=== PATIENT | male | born 1970 | race Caucasian/White ===

== ENCOUNTER 2018-05-25 18:18 | Inpatient (IN) | payer MEDICAID ==
[~2018-05-25] VITALS: Ht 165.1 cm; Wt 64.0 kg
[~2018-05-25 18:18] MED LIST: BENZ2TAB10 PO; FLUP10TA2 PO; OLAN7.5T2 PO; OMEP10 PO; TRAZ150 PO
[2018-05-25] MEDS ORDERED: PROP10TA73 PO (18:39)
[2018-05-25] MEDS ORDERED: LORA1TAB3 PO (18:39)
[2018-05-25] MEDS ORDERED: DIPH50 PO (18:39)
[2018-05-25] MEDS ORDERED: FluPHENAZine HCL 5 MG TABLET PO ONE (19:00)
[2018-05-25 19:04] LABS: BASOPHILS % (AUTO) 0.6 % (0.0-2.0); EOSINOPHILS % (AUTO) 0.1 % (1.0-6.0); HEMATOCRIT 38.2 % (41-53); HEMOGLOBIN 13.5 g/dL (13.5-17.5); LYMPHOCYTES # (AUTO) 1.4 K/uL (1.0-4.8); LYMPHOCYTES % (AUTO) 19.8 % (22.0-44.0); MEAN CORPUSCULAR HEMOGLOBIN 31.9 pg (26.0-34.0); MEAN CORPUSCULAR HGB CONC 35.3 G/dL (31.0-37.0); MEAN CORPUSCULAR VOLUME 90 fL (80-100); MONOCYTES # (AUTO) 0.8 K/uL (0.1-1.0); MONOCYTES % (AUTO) 12.1 % (2.0-9.0); NEUTROPHILS # (AUTO) 4.7 K/uL (1.8-7.7); NEUTROPHILS % (AUTO) 67.4 % (40.0-70.0); PLATELET COUNT (AUTO) 201 K/uL (150-450); RED BLOOD CELL COUNT(AUTO) 4.23 MIL/uL (4.50-5.90); RED CELL DISTRIBUTION WIDTH 13.5 % (11.5-14.5)
[2018-05-25 19:13] LABS: ANION GAP 9 mmol/L (8-16); CALCIUM, TOTAL 7.6 mg/dL (8.8-10.5); CARBON DIOXIDE 23 mmol/L (22-29); CHLORIDE 94 mmol/L (98-107); CREATININE 0.79 mg/dL (0.60-1.30); GLOMERULAR FILTR. RATE CALC > 60 mL/min (>60); GLUCOSE,RANDOM 110 mg/dL (70-110); SODIUM SERUM 126 mmol/L (136-145); UREA NITROGEN, BLOOD 13 mg/dL (7-18)
[2018-05-25 19:18] LABS: ALANINE AMINOTRANSFERASE 45 U/L (12-78); ALBUMIN 3.6 g/dL (3.4-5.0); ALKALINE PHOSPHATASE 69 U/L (46-116); ASPARTATE AMINOTRANSFERASE 33 U/L (15-37); BILIRUBIN,TOTAL 0.4 mg/dL (0.1-1.0); TOTAL PROTEIN, SERUM 7.6 g/dL (6.4-8.2)
[2018-05-25 20:14] LABS: AMPHET/METH SCREEN,URINE NEGATIVE (NEGATIVE); BARBITURATE SCREEN, URINE NEGATIVE (NEGATIVE); BENZODIAZEPINES SCREEN,URINE NEGATIVE (NEGATIVE); CANNABINOID SCREEN,URINE NEGATIVE (NEGATIVE); COCAINE SCREEN,URINE NEGATIVE (NEGATIVE); METHADONE SCREEN, URINE NEGATIVE (NEGATIVE); OPIATE SCREEN,URINE NEGATIVE (NEGATIVE)
[2018-05-25 20:16] LABS: PHENCYCLIDINE SCREEN,URINE NEGATIVE (NEGATIVE)
[2018-05-25] MEDS ORDERED: POTASSIUM CHLORIDE 20 MEQ ER TABLET PO ONE (20:30)
[2018-05-25] MEDS ORDERED: ZOLPIDEM TARTRATE 10 MG TABLET PO PRN (20:45)
[2018-05-25] MEDS: LORazepam 2 MG TABLET PO PRN (21:10)
[2018-05-25] MEDS: OLANZapine 5 MG RAPDIS TABLET PO PRN (21:10)
[2018-05-25 21:42] LABS: APPEARANCE,URINE CLEAR (CLEAR); BILIRUBIN,URINE NEGATIVE (NEGATIVE); GLUCOSE, URINE (UA) NEGATIVE (NEGATIVE); KETONES,URINE NEGATIVE (NEGATIVE); LEUKOCYTE ESTERASE ,URINE NEGATIVE (NEGATIVE); NITRATE,URINE NEGATIVE (NEGATIVE); OCCULT BLOOD,URINE NEGATIVE (NEGATIVE); PH,URINE 5.5 (5.0-8.0); PROTEIN,URINE NEGATIVE (NEGATIVE); UROBILINOGEN,URINE 0.2 mg/dL (<=1.0)
[2018-05-26 00:05] VITALS: BP 128/81
[2018-05-26] MEDS: TraZODone HCL 100 MG TABLET PO SCH ×2 (00:14→20:01)
[2018-05-26] MEDS: OLANZapine 7.5 MG TABLET PO SCH ×2 (00:15→20:02)
[2018-05-26 08:08] VITALS: BP 117/71
[2018-05-26 08:46] LABS: HEMOGLOBIN A1C 5.3 % (4.5-6.2)
[2018-05-26 09:08] LABS: CHOL/HDL RATIO 2.6 (4.2-7.3); FREE T4 (FREE THYROXINE) 0.89 ng/dL (0.76-1.46); POTASSIUM 4.5 mmol/L (3.5-5.1); THYROID STIMULATING HORMONE 2.62 uIU/mL (0.36-3.74)
[2018-05-26] MEDS ORDERED: FLUP5 PO (11:40)
[2018-05-26] MEDS ORDERED: TRAZ-220 PO (11:40)
[2018-05-26] MEDS: SODIUM CHLORIDE 1 GM TABLET PO SCH ×2 (12:28→16:07)
[2018-05-26] MEDS ORDERED: TUBERCULIN, PURIFIED PROTEIN DERIVATIVE 5 TU/0.1 ML SYG ID ONE (13:00)
[2018-05-26] MEDS ORDERED: GuaiFENesin/D-METHORPHAN [SUGAR-FREE] 200-20MG/10 ML SYRUP UDCUP PO PRN (13:00)
[2018-05-26] MEDS ORDERED: PROMETHAZINE HCL 25 MG TABLET PO PRN (13:00)
[2018-05-26] MEDS ORDERED: MAGNESIUM HYDROXIDE SUSPENSION 30 ML UDCUP PO PRN (13:00)
[2018-05-26] MEDS ORDERED: HydrOXYzine PAMOATE 50 MG CAPSULE PO PRN (13:00)
[2018-05-26] MEDS ORDERED: ACETAMINOPHEN 325 MG TABLET PO PRN (13:00)
[2018-05-26] MEDS ORDERED: MAG HYDROX/AL HYDROX/SIMETH ES 30 ML SUSPENSION UDCUP PO PRN (13:00)
[2018-05-26] MEDS ORDERED: LOPERAMIDE HCL 2 MG CAPSULE PO PRN (13:00)
[2018-05-26 16:00] VITALS: BP 124/84
[2018-05-26] MEDS: THIAMINE HCL 100 MG TABLET PO SCH (16:07)
[2018-05-26] MEDS: LORazepam 2 MG TABLET PO PRN (16:07)
[2018-05-27 05:14] VITALS: BP 119/77
[2018-05-27 08:10] VITALS: BP 123/76
[2018-05-27] MEDS: FOLIC ACID 1 MG TABLET PO SCH (08:10)
[2018-05-27] MEDS: SODIUM CHLORIDE 1 GM TABLET PO SCH ×4 (08:10→20:06)
[2018-05-27] MEDS: MULTIVITAMINS WITH MINERALS, THERAPEUTIC TABLET PO SCH (08:10)
[2018-05-27] MEDS: THIAMINE HCL 100 MG TABLET PO SCH ×2 (08:10→16:47)
[2018-05-27 08:55] LABS: ALANINE AMINOTRANSFERASE 34 U/L (12-78); ALBUMIN 3.3 g/dL (3.4-5.0); ALKALINE PHOSPHATASE 64 U/L (46-116); ANION GAP 4 mmol/L (8-16); ASPARTATE AMINOTRANSFERASE 23 U/L (15-37); BILIRUBIN,TOTAL 0.3 mg/dL (0.1-1.0); CALCIUM, TOTAL 7.8 mg/dL (8.8-10.5); CARBON DIOXIDE 28 mmol/L (22-29); CHLORIDE 101 mmol/L (98-107); CREATININE 0.86 mg/dL (0.60-1.30); GLOMERULAR FILTR. RATE CALC > 60 mL/min (>60); GLUCOSE,RANDOM 127 mg/dL (70-110); POTASSIUM 3.8 mmol/L (3.5-5.1); SODIUM SERUM 133 mmol/L (136-145); TOTAL PROTEIN, SERUM 6.6 g/dL (6.4-8.2); UREA NITROGEN, BLOOD 9 mg/dL (7-18)
[2018-05-27 16:22] VITALS: BP 140/90
[2018-05-27] MEDS: OLANZapine 10 MG TABLET PO SCH (20:04)
[2018-05-27] MEDS: TraZODone HCL 100 MG TABLET PO SCH (20:04)
[2018-05-28 02:04] VITALS: BP 119/79
[2018-05-28 08:01] LABS: ANION GAP 6 mmol/L (8-16); CALCIUM, TOTAL 8.1 mg/dL (8.8-10.5); CARBON DIOXIDE 27 mmol/L (22-29); CHLORIDE 103 mmol/L (98-107); CREATININE 0.86 mg/dL (0.60-1.30); GLOMERULAR FILTR. RATE CALC > 60 mL/min (>60); GLUCOSE,RANDOM 128 mg/dL (70-110); POTASSIUM 3.9 mmol/L (3.5-5.1); SODIUM SERUM 136 mmol/L (136-145); UREA NITROGEN, BLOOD 10 mg/dL (7-18)
[2018-05-28 08:09] VITALS: BP 107/72
[2018-05-28] MEDS: FOLIC ACID 1 MG TABLET PO SCH (08:10)
[2018-05-28] MEDS: MULTIVITAMINS WITH MINERALS, THERAPEUTIC TABLET PO SCH (08:10)
[2018-05-28] MEDS: THIAMINE HCL 100 MG TABLET PO SCH ×2 (08:10→16:41)
[2018-05-28] MEDS: SODIUM CHLORIDE 1 GM TABLET PO SCH ×4 (08:10→21:09)
[2018-05-28] MEDS: LORazepam 2 MG TABLET PO PRN ×2 (10:04→16:41)
[2018-05-28] MEDS ORDERED: OLAN10TA20 PO (14:01)
[2018-05-28] MEDS ORDERED: TRAZ-220 PO (14:01)
[2018-05-28] MEDS ORDERED: OLAN10TA3 PO (14:20)
[2018-05-28 16:12] VITALS: BP 135/85
[2018-05-28] MEDS: TraZODone HCL 100 MG TABLET PO SCH (21:09)
[2018-05-28] MEDS: OLANZapine 10 MG TABLET PO SCH (21:09)
[2018-05-29 02:30] VITALS: BP 133/82
[2018-05-29 08:09] VITALS: BP 126/71
[2018-05-29] MEDS: LORazepam 2 MG TABLET PO PRN (08:28)
[2018-05-29] MEDS: SODIUM CHLORIDE 1 GM TABLET PO SCH ×2 (08:28→13:11)
[2018-05-29] MEDS: THIAMINE HCL 100 MG TABLET PO SCH (08:28)
[2018-05-29] MEDS: MULTIVITAMINS WITH MINERALS, THERAPEUTIC TABLET PO SCH (08:28)
[2018-05-29] MEDS: OLANZapine 5 MG RAPDIS TABLET PO PRN (08:28)
[2018-05-29] MEDS: FOLIC ACID 1 MG TABLET PO SCH (08:28)
== END 2018-05-29 13:20 | disposition home or self-care (01) | DRG 750 ==
LOC: EMS 18:18 → B2S 20:30 → B3A 20:31
PROVIDERS: ADMIT Psychiatry & Neurology Psychiatry; ATTEND Psychiatry & Neurology Psychiatry
DX: F20.0 Paranoid schizophrenia (principal); R45.851 Suicidal ideations; K21.9 Gastro-esophageal reflux disease without esophagitis; F17.210 Nicotine dependence, cigarettes, uncomplicated; J44.9 Chronic obstructive pulmonary disease, unspecified; E87.6 Hypokalemia; F32.9 Major depressive disorder, single episode, unspecified; Z79.899 Other long term (current) drug therapy; Z23 Encounter for immunization
CPT/HCPCS: 83036; 84132; 84153; 84436; 84439; 84443; 90686; G0480

== ENCOUNTER 2018-07-24 19:00 | Inpatient (IN) | payer MEDICAID ==
[~2018-07-24] VITALS: Ht 165.1 cm; Wt 66.2 kg
[~2018-07-24 19:00] MED LIST changes: -BENZ2TAB10 PO; -FLUP10TA2 PO; +OLAN10TA20 PO; +OLAN10TA3 PO; -OLAN7.5T2 PO; -OMEP10 PO; +TRAZ-220 PO; -TRAZ150 PO
[2018-07-24 19:47] LABS: BASOPHILS % (AUTO) 0.4 % (0.0-2.0); EOSINOPHILS % (AUTO) 0.1 % (1.0-6.0); HEMATOCRIT 43.4 % (41-53); HEMOGLOBIN 15.2 g/dL (13.5-17.5); LYMPHOCYTES # (AUTO) 1.4 K/uL (1.0-4.8); LYMPHOCYTES % (AUTO) 16.4 % (22.0-44.0); MEAN CORPUSCULAR HEMOGLOBIN 32.4 pg (26.0-34.0); MEAN CORPUSCULAR VOLUME 93 fL (80-100); MONOCYTES # (AUTO) 0.8 K/uL (0.1-1.0); MONOCYTES % (AUTO) 9.6 % (2.0-9.0); NEUTROPHILS # (AUTO) 6.2 K/uL (1.8-7.7); NEUTROPHILS % (AUTO) 73.5 % (40.0-70.0); PLATELET COUNT (AUTO) 219 K/uL (150-450); RED CELL DISTRIBUTION WIDTH 13.5 % (11.5-14.5)
[2018-07-24 19:57] LABS: ANION GAP 8 mmol/L (8-16); CALCIUM, TOTAL 8.6 mg/dL (8.8-10.5); CARBON DIOXIDE 27 mmol/L (22-29); CHLORIDE 104 mmol/L (98-107); CREATININE 0.91 mg/dL (0.60-1.30); GLOMERULAR FILTR. RATE CALC > 60 mL/min (>60); GLUCOSE,RANDOM 105 mg/dL (70-110); POTASSIUM 3.5 mmol/L (3.5-5.1); SODIUM SERUM 139 mmol/L (136-145); UREA NITROGEN, BLOOD 12 mg/dL (7-18)
[2018-07-24 20:00] LABS: AMPHET/METH SCREEN,URINE NEGATIVE (NEGATIVE); BARBITURATE SCREEN, URINE NEGATIVE (NEGATIVE); BENZODIAZEPINES SCREEN,URINE NEGATIVE (NEGATIVE); CANNABINOID SCREEN,URINE NEGATIVE (NEGATIVE); COCAINE SCREEN,URINE NEGATIVE (NEGATIVE); METHADONE SCREEN, URINE NEGATIVE (NEGATIVE); OPIATE SCREEN,URINE NEGATIVE (NEGATIVE)
[2018-07-24] MEDS ORDERED: OLANZapine 5 MG RAPDIS TABLET PO PRN (20:00)
[2018-07-24] MEDS ORDERED: ZOLPIDEM TARTRATE 10 MG TABLET PO PRN (20:00)
[2018-07-24 20:05] LABS: ALANINE AMINOTRANSFERASE 26 U/L (12-78); ALBUMIN 3.9 g/dL (3.4-5.0); ALKALINE PHOSPHATASE 77 U/L (46-116); ASPARTATE AMINOTRANSFERASE 25 U/L (15-37); BILIRUBIN,TOTAL 0.2 mg/dL (0.1-1.0); TOTAL PROTEIN, SERUM 8.4 g/dL (6.4-8.2)
[2018-07-24 20:05] LABS: PHENCYCLIDINE SCREEN,URINE NEGATIVE (NEGATIVE)
[2018-07-24 21:01] VITALS: BP 147/92
[2018-07-24] MEDS: LORazepam 2 MG TABLET PO PRN (21:40)
[2018-07-24] MEDS ORDERED: MAGNESIUM HYDROXIDE SUSPENSION 30 ML UDCUP PO PRN (21:45)
[2018-07-24] MEDS ORDERED: ACETAMINOPHEN 325 MG TABLET PO PRN (21:45)
[2018-07-24] MEDS ORDERED: MAG HYDROX/AL HYDROX/SIMETH ES 30 ML SUSPENSION UDCUP PO PRN (21:45)
[2018-07-25] MEDS ORDERED: -PHARMACY VACCINE NOTE- MISC ONE (07:00)
[2018-07-25] MEDS: LORazepam 2 MG TABLET PO PRN (08:17)
[2018-07-25] MEDS: NICOTINE 14 MG/24 HOUR PATCH TD SCH (08:18)
[2018-07-25 08:29] VITALS: BP 128/108
[2018-07-25 16:12] VITALS: BP 132/99
[2018-07-25] MEDS ORDERED: ZOLPIDEM TARTRATE 10 MG TABLET PO PRN (17:00)
[2018-07-25] MEDS ORDERED: ChlorproMAZINE HCL 100 MG TABLET PO PRN (17:00)
[2018-07-25] MEDS: TraZODone HCL 100 MG TABLET PO SCH (20:20)
[2018-07-25] MEDS: OLANZapine 5 MG TABLET PO SCH (20:20)
[2018-07-26 08:14] VITALS: BP 116/65
[2018-07-26] MEDS: NICOTINE 14 MG/24 HOUR PATCH TD SCH (09:00)
[2018-07-26] MEDS: LORazepam 2 MG TABLET PO PRN (09:21)
[2018-07-26 16:31] VITALS: BP 124/78
[2018-07-26] MEDS: OLANZapine 5 MG TABLET PO SCH (20:34)
[2018-07-26] MEDS: TraZODone HCL 100 MG TABLET PO SCH (20:34)
[2018-07-27] MEDS: LORazepam 2 MG TABLET PO PRN (08:22)
[2018-07-27] MEDS: NICOTINE 14 MG/24 HOUR PATCH TD SCH (08:23)
[2018-07-27 09:48] VITALS: BP 106/72
[2018-07-27] MEDS ORDERED: MAGNESIUM HYDROXIDE SUSPENSION 30 ML UDCUP PO PRN (13:00)
[2018-07-27] MEDS ORDERED: MAG HYDROX/AL HYDROX/SIMETH ES 30 ML SUSPENSION UDCUP PO PRN (13:00)
[2018-07-27] MEDS ORDERED: HydrOXYzine PAMOATE 50 MG CAPSULE PO PRN (13:00)
[2018-07-27] MEDS ORDERED: LOPERAMIDE HCL 2 MG CAPSULE PO PRN (13:00)
[2018-07-27] MEDS ORDERED: PROMETHAZINE HCL 25 MG TABLET PO PRN (13:00)
[2018-07-27] MEDS ORDERED: OLANZapine 5 MG RAPDIS TABLET PO PRN (13:00)
[2018-07-27] MEDS ORDERED: GuaiFENesin/D-METHORPHAN [SUGAR-FREE] 200-20MG/10 ML SYRUP UDCUP PO PRN (13:00)
[2018-07-27] MEDS ORDERED: ACETAMINOPHEN 325 MG TABLET PO PRN (13:00)
[2018-07-27] MEDS ORDERED: FluPHENAZine HCL 5 MG TABLET PO PRN (16:15)
[2018-07-27] MEDS: THIAMINE HCL 100 MG TABLET PO SCH (16:33)
[2018-07-27 17:09] VITALS: BP 128/89
[2018-07-27] MEDS ORDERED: OLANZapine 7.5 MG TABLET PO SCH (21:00)
[2018-07-27] MEDS ORDERED: FluPHENAZine HCL 10 MG TABLET PO SCH (21:00)
[2018-07-27] MEDS: DiphenhydrAMINE HCL 50 MG CAPSULE PO SCH (21:13)
[2018-07-28 03:30] VITALS: BP 125/75
[2018-07-28 08:22] VITALS: BP 118/73
[2018-07-28] MEDS: MULTIVITAMINS WITH MINERALS, THERAPEUTIC TABLET PO SCH (08:50)
[2018-07-28] MEDS: THIAMINE HCL 100 MG TABLET PO SCH ×2 (08:50→16:11)
[2018-07-28] MEDS: FOLIC ACID 1 MG TABLET PO SCH (08:51)
[2018-07-28] MEDS: LORazepam 2 MG TABLET PO PRN (08:51)
[2018-07-28] MEDS: NALTREXONE HCL 50 MG TABLET PO SCH (08:51)
[2018-07-28] MEDS: NICOTINE 14 MG/24 HOUR PATCH TD SCH (09:00)
[2018-07-28] MEDS: DiphenhydrAMINE HCL 50 MG CAPSULE PO SCH (20:42)
[2018-07-28] MEDS ORDERED: FluPHENAZine HCL 10 MG TABLET PO SCH (21:00)
[2018-07-28 21:08] VITALS: BP 111/70
[2018-07-29] MEDS: NICOTINE 14 MG/24 HOUR PATCH TD SCH (09:00)
[2018-07-29 09:38] VITALS: BP 113/69
[2018-07-29] MEDS: NALTREXONE HCL 50 MG TABLET PO SCH (10:00)
[2018-07-29] MEDS: THIAMINE HCL 100 MG TABLET PO SCH ×2 (10:00→16:17)
[2018-07-29] MEDS: LORazepam 2 MG TABLET PO PRN ×2 (10:00→16:17)
[2018-07-29] MEDS: FOLIC ACID 1 MG TABLET PO SCH (10:00)
[2018-07-29] MEDS: MULTIVITAMINS WITH MINERALS, THERAPEUTIC TABLET PO SCH (10:00)
[2018-07-29] MEDS ORDERED: NALT50TA PO (13:42)
[2018-07-29] MEDS ORDERED: FLUP10 PO (13:42)
[2018-07-29] MEDS ORDERED: DIPH50 PO (13:42)
[2018-07-29 17:12] VITALS: BP 111/66
[2018-07-29] MEDS: DiphenhydrAMINE HCL 50 MG CAPSULE PO SCH (20:33)
[2018-07-29] MEDS ORDERED: FluPHENAZine HCL 10 MG TABLET PO SCH (21:00)
[2018-07-30] MEDS: NICOTINE 14 MG/24 HOUR PATCH TD SCH (09:00)
[2018-07-30] MEDS: FOLIC ACID 1 MG TABLET PO SCH (09:08)
[2018-07-30] MEDS: MULTIVITAMINS WITH MINERALS, THERAPEUTIC TABLET PO SCH (09:08)
[2018-07-30] MEDS: NALTREXONE HCL 50 MG TABLET PO SCH (09:08)
[2018-07-30] MEDS: THIAMINE HCL 100 MG TABLET PO SCH (09:08)
[2018-07-30 10:27] VITALS: BP 106/76
== END 2018-07-30 10:00 | disposition home or self-care (01) | DRG 750 ==
LOC: EMS 19:00 → 3EC 20:47 → 3EI 07-26 22:10
PROVIDERS: ADMIT Psychiatry & Neurology Psychiatry; ATTEND Psychiatry & Neurology Psychiatry
DX: F20.0 Paranoid schizophrenia (principal); R45.851 Suicidal ideations; Z91.19 Patient's noncompliance with other medical treatment and regimen; J44.9 Chronic obstructive pulmonary disease, unspecified; K21.9 Gastro-esophageal reflux disease without esophagitis; F17.210 Nicotine dependence, cigarettes, uncomplicated; Z88.8 Allergy status to other drugs, medicaments and biological substances; Z79.899 Other long term (current) drug therapy
CPT/HCPCS: G0480; G0481

== ENCOUNTER 2019-08-04 16:58 | Emergency (ER) | payer MEDICAID ==
[~2019-08-04] VITALS: Ht 165.1 cm; Wt 84.0 kg
[~2019-08-04 16:58] MED LIST changes: +DIPH50 PO; +FLUP10 PO; +NALT50TA PO; -OLAN10TA20 PO; -OLAN10TA3 PO; -TRAZ-220 PO
[2019-08-04 18:23] VITALS: BP 128/84
[2019-08-04] MEDS ORDERED: BENZ0.5T44 PO (18:25)
[2019-08-04] MEDS ORDERED: PROP10TA73 PO (18:25)
[2019-08-04] MEDS ORDERED: OLAN5TAB2 PO (18:25)
[2019-08-04] MEDS ORDERED: LORA-1000 PO (18:25)
[2019-08-04] MEDS ORDERED: TRAZ150 PO (18:25)
[2019-08-04 19:18] LABS: BASOPHILS % (AUTO) 0.6 % (0.0-2.0); EOSINOPHILS % (AUTO) 0 % (1.0-6.0); HEMATOCRIT 36.9 % (41-53); HEMOGLOBIN 12.8 g/dL (13.5-17.5); LYMPHOCYTES # (AUTO) 1.1 K/uL (1.0-4.8); LYMPHOCYTES % (AUTO) 17.2 % (22.0-44.0); MEAN CORPUSCULAR HGB CONC 34.6 G/dL (31.0-37.0); MEAN CORPUSCULAR VOLUME 90 fL (80-100); MONOCYTES # (AUTO) 0.4 K/uL (0.1-1.0); MONOCYTES % (AUTO) 5.8 % (2.0-9.0); NEUTROPHILS # (AUTO) 4.8 K/uL (1.8-7.7); NEUTROPHILS % (AUTO) 76.4 % (40.0-70.0); PLATELET COUNT (AUTO) 246 K/uL (150-450); RED BLOOD CELL COUNT(AUTO) 4.12 MIL/uL (4.50-5.90); RED CELL DISTRIBUTION WIDTH 13.2 % (11.5-14.5)
[2019-08-04 19:34] LABS: ANION GAP 9 mmol/L (8-16); CALCIUM, TOTAL 8.2 mg/dL (8.8-10.5); CARBON DIOXIDE 24 mmol/L (22-29); CHLORIDE 109 mmol/L (98-107); CREATININE 0.92 mg/dL (0.60-1.30); GLOMERULAR FILTR. RATE CALC > 60 mL/min (>60); GLUCOSE,RANDOM 101 mg/dL (70-110); SODIUM SERUM 142 mmol/L (136-145); UREA NITROGEN, BLOOD 11 mg/dL (7-18)
[2019-08-04 19:48] LABS: ALANINE AMINOTRANSFERASE 17 U/L (12-78); ALBUMIN 3.3 g/dL (3.4-5.0); ALKALINE PHOSPHATASE 62 U/L (46-116); ASPARTATE AMINOTRANSFERASE 20 U/L (15-37); BILIRUBIN,TOTAL 0.2 mg/dL (0.1-1.0); TOTAL PROTEIN, SERUM 7.3 g/dL (6.4-8.2)
== END 2019-08-04 19:45 | disposition home or self-care (01) ==
LOC: EMS 17:03
DX: F25.1 Schizoaffective disorder, depressive type (principal); F17.210 Nicotine dependence, cigarettes, uncomplicated; Z79.899 Other long term (current) drug therapy; Z88.8 Allergy status to other drugs, medicaments and biological substances
CPT/HCPCS: 36415; 80053; 85025; 99284; 99406; G0480